=== PATIENT | male | born 1980 | race Caucasian/White ===

== ENCOUNTER 2020-12-29 12:58 | Inpatient (IN) | payer OTHER ==
[2020-12-29 14:25] VITALS: BMI 33.4
[2020-12-29] MEDS ORDERED: NICOTINE POLACRILEX 2 MG GUM BUC PRN (14:40)
[2020-12-29] MEDS ORDERED: MAGNESIUM CITRATE 300 ML BOTTLE PO PRN (14:40)
[2020-12-29] MEDS ORDERED: IBUPROFEN 400 MG TABLET (FP) PO PRN (14:40)
[2020-12-29] MEDS ORDERED: BISMUTH SUBSALICYLATE 262 MG/15 ML BTL PO PRN (14:40)
[2020-12-29] MEDS ORDERED: MENTHOL/PHENOL 1 EACH UD MM PRN (14:40)
[2020-12-29] MEDS ORDERED: ONDANSETRON *ODT* 4 MG TABLET SL PRN (14:40)
[2020-12-29] MEDS ORDERED: ACETAMINOPHEN 325 MG TABLET (FP) PO PRN ×2 (14:40)
[2020-12-29] MEDS ORDERED: MAGNESIUM HYDROX 2400MG/30ML ORAL SUSPENSION 30 ML CUP PO PRN (14:40)
[2020-12-29] MEDS ORDERED: METHOCARBAMOL 500 MG TABLET PO PRN (14:40)
[2020-12-29] MEDS ORDERED: MAG HYDROX/AL HYDROX/SIMETH 30 ML UNIT-DOSE CUP PO PRN (14:40)
[2020-12-29] MEDS ORDERED: chlordiazePOXIDE HCL 25 MG CAPSULE PO PRN (14:43)
[2020-12-29] MEDS ORDERED: chlordiazePOXIDE HCL 25 MG CAPSULE PO ONE (14:43)
[2020-12-29] MEDS ORDERED: POTASSIUM CHLORIDE ORAL LIQUID 20 MEQ/15 ML PO ONE (14:44)
[2020-12-29] MEDS: chlordiazePOXIDE HCL 25 MG CAPSULE PO SCH ×2 (17:59→22:43)
[2020-12-29] MEDS ORDERED: hydrOXYzine PAMOATE 25 MG CAPSULE (FP) PO SCH (18:00)
[2020-12-29] MEDS: MELATONIN 5 MG TABLETS PO SCH (22:44)
[2020-12-29] MEDS: THIAMINE HCL 100 MG TABLET (FP) PO SCH (22:44)
[2020-12-30] MEDS: chlordiazePOXIDE HCL 25 MG CAPSULE PO SCH ×4 (05:36→22:58)
[2020-12-30] MEDS: PRENATAL VITAMINS W/ FOLIC ACID TABLET (FP) PO SCH (10:38)
[2020-12-30 12:44] LABS: CHLORIDE 98 mmol/L (98-107); HEMATOCRIT 44.1 % (35.4-49); HEMOGLOBIN 15.8 GM/dL (11.7-16.9); MCHC 35.9 g/dl (32.0-35.9); MEAN CELL VOLUME 100.4 fl (80-96); MEAN PLT VOLUME 8.8 fl (7.5-11.1); PLATELET COUNT 167 K/MM3 (134-434); POTASSIUM 3.2 mmol/L (3.5-5.1); RBC 4.39 M/mm3 (4.00-5.60); RDW 14.3 % (11.9-15.9); SODIUM 130 mmol/L (136-145); WHITE BLOOD COUNT 5.8 K/mm3 (4.0-10.0)
[2020-12-30 12:55] LABS: BLOOD UREA NITROGEN 3.1 mg/dL (7-18)
[2020-12-30 12:56] LABS: ALBUMIN 3.4 g/dl (3.4-5.0); ANION GAP 12 MMOL/L (8-16); CALCIUM 8.7 mg/dL (8.5-10.1); CO2 21 mmol/L (21-32); GLUCOSE,RANDOM 144 mg/dL (74-106)
[2020-12-30 13:00] LABS: CREATININE 0.6 mg/dL (0.55-1.3)
[2020-12-30 13:02] LABS: ALK PHOS 122 U/L (45-117); BILIRUBIN,TOTAL 1.2 mg/dL (0.2-1); TOT PROT 7.3 g/dl (6.4-8.2)
[2020-12-30] MEDS ORDERED: POTASSIUM CHLORIDE ORAL LIQUID 20 MEQ/15 ML PO ONE (16:35)
[2020-12-30] MEDS: THIAMINE HCL 100 MG TABLET (FP) PO SCH (22:58)
[2020-12-30] MEDS: MELATONIN 5 MG TABLETS PO SCH (22:58)
[2020-12-30] MEDS: POTASSIUM CHLORIDE ORAL LIQUID 20 MEQ/15 ML PO SCH (23:26)
[2020-12-31] MEDS ORDERED: LORazepam 0.5 MG TABLET PO PRN
[2020-12-31] MEDS: chlordiazePOXIDE HCL 25 MG CAPSULE PO SCH ×2 (06:04→10:36)
[2020-12-31] MEDS: PRENATAL VITAMINS W/ FOLIC ACID TABLET (FP) PO SCH (10:37)
[2020-12-31] MEDS: hydrOXYzine PAMOATE 25 MG CAPSULE (FP) PO PRN (10:37)
[2020-12-31 10:48] LABS: INR 1.07 (0.83-1.09); PROTHROMBIN TIME (PATIENT) 12.9 SEC (9.7-13.0)
[2020-12-31] MEDS: POTASSIUM CHLORIDE ORAL LIQUID 20 MEQ/15 ML PO SCH ×2 (11:11→23:01)
[2020-12-31 11:21] LABS: CHLORIDE 104 mmol/L (98-107); POTASSIUM 3.5 mmol/L (3.5-5.1); SODIUM 139 mmol/L (136-145)
[2020-12-31 11:26] LABS: ANION GAP 10 MMOL/L (8-16); CALCIUM 9.4 mg/dL (8.5-10.1); CO2 24 mmol/L (21-32); GLUCOSE,RANDOM 115 mg/dL (74-106)
[2020-12-31 11:27] LABS: ALBUMIN 3.4 g/dl (3.4-5.0)
[2020-12-31 11:30] LABS: CREATININE 0.5 mg/dL (0.55-1.3); SGOT/AST 84 U/L (15-37); SGPT/ALT 39 U/L (13-61)
[2020-12-31 11:31] LABS: BILIRUBIN,TOTAL 0.7 mg/dL (0.2-1); TOT PROT 7.4 g/dl (6.4-8.2)
[2020-12-31 11:32] LABS: ALK PHOS 116 U/L (45-117)
[2020-12-31 12:16] LABS: BLOOD UREA NITROGEN 2.5 mg/dL (7-18)
[2020-12-31] MEDS: LACTULOSE 20 GM/30 ML UDC (FOR ORAL USE ONLY) PO SCH ×3 (14:12→23:01)
[2020-12-31] MEDS: LORazepam 1 MG TABLET PO SCH ×2 (17:45→23:02)
[2020-12-31] MEDS: THIAMINE HCL 100 MG TABLET (FP) PO SCH (23:02)
[2020-12-31] MEDS: MELATONIN 5 MG TABLETS PO SCH (23:02)
[2021-01-01] MEDS ORDERED: chlordiazePOXIDE HCL 10 MG CAPSULE PO PRN
[2021-01-01] MEDS ORDERED: chlordiazePOXIDE HCL 10 MG CAPSULE PO SCH (05:00)
[2021-01-01] MEDS: LORazepam 0.5 MG TABLET PO SCH ×4 (05:38→22:23)
[2021-01-01] MEDS: PRENATAL VITAMINS W/ FOLIC ACID TABLET (FP) PO SCH (10:13)
[2021-01-01] MEDS: hydrOXYzine PAMOATE 25 MG CAPSULE (FP) PO PRN (10:14)
[2021-01-01] MEDS: LACTULOSE 20 GM/30 ML UDC (FOR ORAL USE ONLY) PO SCH ×4 (10:14→22:25)
[2021-01-01 11:13] LABS: BLOOD UREA NITROGEN 4.7 mg/dL (7-18)
[2021-01-01 11:15] LABS: CALCIUM 9.4 mg/dL (8.5-10.1)
[2021-01-01 11:16] LABS: ALBUMIN 3.4 g/dl (3.4-5.0)
[2021-01-01 11:19] LABS: CREATININE 0.6 mg/dL (0.55-1.3)
[2021-01-01 11:20] LABS: BILIRUBIN,TOTAL 0.7 mg/dL (0.2-1); TOT PROT 7.2 g/dl (6.4-8.2)
[2021-01-01] MEDS: THIAMINE HCL 100 MG TABLET (FP) PO SCH (22:24)
[2021-01-01] MEDS: MELATONIN 5 MG TABLETS PO SCH (22:24)
[2021-01-02] MEDS: hydrOXYzine PAMOATE 25 MG CAPSULE (FP) PO PRN (00:05)
[2021-01-02] MEDS ORDERED: chlordiazePOXIDE HCL 10 MG CAPSULE PO SCH (05:00)
[2021-01-02] MEDS: LORazepam 0.5 MG TABLET PO SCH ×4 (05:37→22:35)
[2021-01-02] MEDS: PRENATAL VITAMINS W/ FOLIC ACID TABLET (FP) PO SCH (10:23)
[2021-01-02] MEDS: LACTULOSE 20 GM/30 ML UDC (FOR ORAL USE ONLY) PO SCH ×4 (10:24→22:35)
[2021-01-02] MEDS: MELATONIN 5 MG TABLETS PO SCH (22:35)
[2021-01-02] MEDS: THIAMINE HCL 100 MG TABLET (FP) PO SCH (22:35)
[2021-01-03] MEDS ORDERED: chlordiazePOXIDE HCL 10 MG CAPSULE PO ONE (05:00)
[2021-01-03] MEDS: LORazepam 0.5 MG TABLET PO SCH ×4 (05:39→22:21)
[2021-01-03 09:57] LABS: HEMATOCRIT 42.2 % (35.4-49); HEMOGLOBIN 14.7 GM/dL (11.7-16.9); MCH 35.2 pg (25.7-33.7); MCHC 34.9 g/dl (32.0-35.9); MEAN CELL VOLUME 100.8 fl (80-96); MEAN PLT VOLUME 8.6 fl (7.5-11.1); PLATELET COUNT 163 K/MM3 (134-434); RBC 4.18 M/mm3 (4.00-5.60); RDW 14.1 % (11.9-15.9)
[2021-01-03] MEDS: LACTULOSE 20 GM/30 ML UDC (FOR ORAL USE ONLY) PO SCH ×4 (10:15→22:21)
[2021-01-03] MEDS: PRENATAL VITAMINS W/ FOLIC ACID TABLET (FP) PO SCH (10:15)
[2021-01-03 11:41] LABS: ALBUMIN 3.5 g/dl (3.4-5.0); BILIRUBIN,TOTAL 0.5 mg/dL (0.2-1); BLOOD UREA NITROGEN 6.3 mg/dL (7-18); CALCIUM 8.9 mg/dL (8.5-10.1); CREATININE 0.5 mg/dL (0.55-1.3); POTASSIUM 3.7 mmol/L (3.5-5.1)
[2021-01-03] MEDS: hydrOXYzine PAMOATE 25 MG CAPSULE (FP) PO PRN ×2 (14:10→22:22)
[2021-01-03] MEDS: MELATONIN 5 MG TABLETS PO SCH (22:21)
[2021-01-03] MEDS: THIAMINE HCL 100 MG TABLET (FP) PO SCH (22:21)
[2021-01-04] MEDS: hydrOXYzine PAMOATE 25 MG CAPSULE (FP) PO PRN ×2 (01:07→10:21)
[2021-01-04] MEDS: LORazepam 0.5 MG TABLET PO SCH ×4 (05:47→22:28)
[2021-01-04] MEDS: LACTULOSE 20 GM/30 ML UDC (FOR ORAL USE ONLY) PO SCH ×4 (10:20→22:28)
[2021-01-04] MEDS: PRENATAL VITAMINS W/ FOLIC ACID TABLET (FP) PO SCH (10:20)
[2021-01-04] MEDS: MELATONIN 5 MG TABLETS PO SCH (22:28)
[2021-01-04] MEDS: THIAMINE HCL 100 MG TABLET (FP) PO SCH (22:28)
[2021-01-05] MEDS: LORazepam 0.5 MG TABLET PO SCH (06:29)
[2021-01-05 09:09] VITALS: BP 148/72; PULSE 101; TEMP 97.5
== END 2021-01-05 09:58 | disposition home or self-care (01) | DRG 775 ==
LOC: YASAS 12:58 → Y6N 15:12
PROVIDERS: ADMIT Allergy & Immunology; ATTEND Allergy & Immunology
PROC: HZ2ZZZZ Detoxification Services for Substance Abuse Treatment (ICD-10-PCS; principal; 2020-12-29)
DX: F10.230 Alcohol dependence with withdrawal, uncomplicated (principal); F10.282 Alcohol dependence with alcohol-induced sleep disorder; F10.280 Alcohol dependence with alcohol-induced anxiety disorder; F17.211 Nicotine dependence, cigarettes, in remission; E87.1 Hypo-osmolality and hyponatremia; E87.6 Hypokalemia; R45.89 Other symptoms and signs involving emotional state; Z88.0 Allergy status to penicillin
CPT/HCPCS: 36415; 80053; 82140; 82962; 85027; 85610; 86780; C9803; U0003